=== PATIENT | male | born 1970 | race Caucasian/White ===

== ENCOUNTER 2016-08-24 10:35 | Day surgery (SDC) | payer SELFPAY ==
[~2016-08-24] VITALS: Ht 175.3 cm; Wt 91.2 kg
[~2016-08-24 10:35] MED LIST: CeFAZolin 2 Gm/50 mL D5W IV Premix IV ONE; Lactated Ringer's 1,000 ML IV SCH
[2016-08-24] MEDS ORDERED: MetoCLOpramide 5 mg/mL 2 mL Inj ONE (10:36)
[2016-08-24] MEDS ORDERED: fentaNYL-PF 50 mCg/mL 2 mL Inj ONE (10:36)
[2016-08-24] MEDS ORDERED: Ondansetron 2 mg/mL 2 mL Inj ONE (10:36)
[2016-08-24] MEDS ORDERED: Dexamethasone 4 mg/mL Inj ONE (10:36)
[2016-08-24] MEDS ORDERED: Propofol 10,000 mCg/mL 20 mL Inj ONE (10:36)
[2016-08-24 10:58] VITALS: BP 120/70; PULSE 62; RESP 16; O2SAT 99
[2016-08-24] MEDS ORDERED: CeFAZolin 2 Gm/50 mL D5W Duplex Bag IV ONE (11:34)
[2016-08-24] MEDS ORDERED: Lactated Ringer's 1,000 ML IV SCH (13:27)
[2016-08-24] MEDS ORDERED: Lactated Ringer's 500 ML IV PRN (13:27)
[2016-08-24] MEDS ORDERED: Phenylephrine 10,000 mCg/mL Inj IVPUSH PRN (13:30)
[2016-08-24] MEDS ORDERED: EPHEDrine Sulfate 50 mg/mL Inj IVPUSH PRN (13:30)
[2016-08-24] MEDS ORDERED: HYDROmorphone 1 mg/mL Inj IVPUSH PRN (13:30)
[2016-08-24] MEDS ORDERED: MetoCLOpramide 5 mg/mL 2 mL Inj IVPUSH PRN (13:30)
[2016-08-24] MEDS ORDERED: Ondansetron 2 mg/mL 2 mL Inj IVPUSH PRN (13:30)
[2016-08-24] MEDS ORDERED: Dexamethasone 4 mg/mL Inj IVPUSH PRN (13:30)
[2016-08-24] MEDS ORDERED: fentaNYL-PF 50 mCg/mL 2 mL Inj IVPUSH PRN (13:30)
[2016-08-24] MEDS ORDERED: Lactated Ringer's 1,000 ML IV ONE (15:44)
[2016-08-24] MEDS ORDERED: Bupivacaine-MPF 0.25% 30 mL Inj INFILTRATE ONE (15:50)
[2016-08-24 16:12] VITALS: BP 135/78; PULSE 105; RESP 20; O2SAT 95
[2016-08-24 16:20] VITALS: BP 120/65; PULSE 91; RESP 14; O2SAT 96
--- NOTE | 2016-08-24 16:26 | PCM.SURGPO ---
Immediate Operative Note Date of Surgery: Aug 24, 2016 Pre Operative Diagnosis L testicular mass, bladder tumor Post Operative Diagnosis L testicular mass, bladder tumor Procedure L radical inguinal orchiectomy, cystoscopy, transurethral resection of bladder tumor (1-2cm) Surgeon and Leak Hunter Surgeon: Cruz Aguilera MD Assistants: None Findings Cystoscopy revealed an approx. 1 cm papillary bladder tumor on L posterior wall. Bladder tumor was resected using bipolar loop electrocautery. L radical inguinal orchiectomy was performed. Complications There were no periprocedural complications identified. Surgical Specimen Removed: Yes Specimen sent to Pathology: Yes Surgical Specimen description: L testis, L posterior wall bladder tumor Anesthetic Administered: GA Grafts, Implants: None Output, Estimated Blood Loss: 5 Blood Admin during surgery: No Additional information Patient to be discharged home when stable, to return to see me in 1 week for post-op visit. Cruz Aguilera MD Aug 24, 2016 16:26
[2016-08-24 16:30] VITALS: BP 125/68; PULSE 88; RESP 13; O2SAT 98
--- NOTE | 2016-08-24 16:33 | PCM.DISURG ---
Surgical Discharge Instruction Date of Service Aug 24, 2016 Dates of Hospitalization Date of Hospital Admission Aug 24, 2016 Providers Admitting Physician: Cruz Aguilera MD Primary Care Physician: Nophalima Attending Physician: Cruz Aguilera MD Discharge Diagnosis Discharge Diagnosis L testicular mass, bladder tumor Post Operative diagnosis L testicular mass, bladder tumor Diet Discharge Diet: No restrictions, Other (Drink at least 10-12 8oz. glasses (3 liters) of fluids per day) Activity Discharge Activity-General: No driving while taking narcotic, Other (No strenuous exercise, strenuous activity, moderate or heavy lifting (more than 10 lbs.), and abdominal straining for 6 weeks) Dressing and Incisional Care Dressing Care: Keep dressing clean, dry & intact, Allow Steri Stripes to fall off, Other (Remove dressing covering left inguinal wound (leaving Steri-strips in place) and remove scrotal fluff gauze dressing in 3 days (on Sun. 08/27) and then can shower. Continue to wear scrotal support at all times.) Hygiene: Other (No bath/pool/spa for 4 weeks.) Additional Instructions Discharge Instructions Stay off your feet as much as possible during the next 3 days. Follow Up Plan Follow-up Provider (F9): Cruz Aguilera MD Follow-up appointment: Weeks (1 week for post-op visit) Call your provider for: Fever, Chills, Increasing abdominal pain, Vomiting, Increasing wound pain, Discharge @ incision, pus discharge, Other (Unable to urinate for more than 6 hours, pain uncontrolled by pain medications) Cruz Aguilera MD Aug 24, 2016 16:33
--- NOTE | 2016-08-24 16:34 | PCM.HPANE ---
Patient Data Surgeon Admitting Provider: Attending Provider:Cruz Aguilera MD Primary Care Physician:Yoni Other Provider:Rozina Blanco Anesthesia Reason for Visit Left Testicular Mass, Bladder Tumor Ht/WT & BMI Height (Feet): 5 Height (Inches): 9 Weight (Kilograms): 91.08 Body Mass Index 29.00 Allergies Coded Allergies: No Known Allergies (Unverified , 08/23/16) Past Anesthesia History Anesthesia History: Denies:: Abnormal Airway, Anesthesia Reactions, Difficult Intubation, Fam Anesthesia Reaction, Fam Malignant Hypertherm, Malignant Hyperthermia Diabetes History Hx Diabetes?: No MRSA MRSA: No Medications Hypertension Medication: No Home Meds Incl Beta Kai: No No Active Prescriptions or Reported Meds History HEENT History: Denies:: Abnormal Airway Cataracts Difficult Intubation Dysphagia Glaucoma Hearing Problem Sinus Problem TMJ Cardiovascular History: Denies:: AICD Abdominal Aortic Aneurism Atrial Fibrillation Cardiac Surgery Edema Heart Murmur Hypertension Irregular Heartbeat Pacemaker Peripheral Vascular Hx of Respiratory Problem?: No Respiratory History: Denies:: Asthma COPD Emphysema Oxygen Administration Pneumonia Tuberculosis Use of C-PAP Machine Use of Inhalers / NEBS Hx Neurologic Problems?: No Neurological History: Denies:: CVA Dizziness Headaches Multiple Sclerosis Parkinson's Disease Seizures TIA Hx of GI Problems?: No Gastrointestinal History: Denies:: Cirrhosis Gall Bladder Disease Gastroesphageal Reflux Gastrointestinal Bleeding Heartburn Hepatitis Hiatal Hernia Hx of Problems?: No Genitourinary History: Denies:: Kidney Stones Urinary Tract Infection Male Hx: Positive for:: Testicular Surgery (left mass current admission problem) Denies:: Prostate Problems Skin History: Denies:: History Skin Disorders? Pressure Ulcers Hx Musculoskeletal Problems?: No Musculoskeletal History: Denies:: Back Injury Degenerative Joint Fibromyalgia Joint Replacement Musculoskeletal Trauma Myasthenia Gravis Osteoarthritis Rheumatoid Arthritis Systemic Lupus Hx of Psycho/Social Problems?: No Psycho Social History: Denies:: Anxiety Hx Depression Hx Surgeries?: Yes (vas, brachial cleft cyst removal ) Hx Any Other Health Problems?: Yes Other History: Denies:: Cancer (poss this admission, bladder cancer ) Thyroid Disease History Blood Transfusions: Positive for:: Accept Blood Products? Denies:: Blood Transfusions Hx Diabetes: No Hx Alcohol Use: NoHx Substance Use: NoHave You Smoked inLast 12 mo: No Stop/Bang S-Snoring: Do You Snore Loudly: No T-Tired: feel tired, fatigued: No O-Obsered: Observed not breath: No P-Blood Pressure: treated: No B- Body Mass Index > 35 kg/m2: No A- Age over 50: No N- Neck Large Circumference: No G- Gender Male: Yes AMBER Total Score: 1 Risk Assessment Category Category 1A: Patient has history of documented sleep apnea, and HAS NOT received any narcotic, sedative or anesthesia administration during this stay. Category 1B: Patient has history of documented sleep apnea, and HAS received any narcotic , sedative or anesthesia administration during this stay Category 2: Patient has SUSPECTED Obstructive Sleep Apnea, and HAS received any narcotic , sedative or anesthesia administration during this stay. Category 3: Patient has SUSPECTED Obstructive Sleep Apnea and HAS NOT received narcotic, sedative or anesthesia administration during this stay. Category 4: Outpatient in Procedural Areas with known sleep apnea or who screen positive for High Risk via the STOP/BANG questionnaire. Exam Exam General Appearance: Alert, Oriented X3, Cooperative, No Acute Distress HEENT/AIRWAY: MP 2 Lungs: Clear to Auscultation Heart: Exam Unremarkable Plan Impression Patient chart reviewed, patient interviewed and anesthestic plan with risks, benefits, and alternatives discussed, and informed consent obtained. ASA Physical Status: ASA2 Mod Systemic Disease Anesthetic Plan: GA Bene/Risks/Altern/Consents: Yes HP Complete Prior to Induction: Yes Joseluis Rubio MD Aug 24, 2016 07:55
--- NOTE | 2016-08-24 16:35 | PCM.ANEP1 ---
Post Anesthesia Phase 1 PACU Phase 1 Assessment Date of Service: Aug 24, 2016 Vital Signs Vital Signs Date Time Temp Pulse Resp B/P Pulse Ox O2 Delivery O2 Flow Rate FiO2 08/24/16 16:30 88 13 125/68 98 Room Air 08/24/16 16:20 91 14 120/65 96 Room Air 08/24/16 16:12 36.6 105 20 135/78 95 Room Air 08/24/16 10:58 36.2 62 16 120/70 99 Room Air Anesthetic Administered: GA Level of Alertness: Awake, talking HATCH's with Equal Strength: Yes Pain: No Nausea or Vomiting: No Oxygen Delivery: Room Air Lungs: Clear to Auscultation Dermatome Level: Full Sensation Joseluis Rubio MD Aug 24, 2016 16:35
--- NOTE | 2016-08-24 16:35 | PCM.ANEP2 ---
Post Anesthesia Evaluation ASA/CMS Post Anesthesia VS in Patient's Normal Range?: Yes Resp Stable; Airway Patent?: Yes CV Function & Hydration Stable: Yes Mental Status Recovered?: Yes Pain control Satisfactory?: Yes N/V Control Satisfactory?: Yes Joseluis Rubio MD Aug 24, 2016 16:35
[2016-08-24 16:38] VITALS: BP 128/75; PULSE 87; RESP 16; O2SAT 95
[2016-08-24 16:42] VITALS: BP 132/74; PULSE 92; RESP 16; O2SAT 96
[2016-08-24] MEDS ORDERED: HYDROcodone-APAP 5-325 mg Tablet PO PRN (16:45)
--- NOTE | 2016-08-25 20:22 | OP ---
[address] [address] OPERATIVE REPORT PATIENT: WILLY BRENNAN : 1970 MR#: [id number] ADMIT: 08/24/2016 JOB ID: [id number] DATE OF SURGERY: 08/24/2016 PREOPERATIVE DIAGNOSIS(ES): Left testicular mass, bladder tumor. POSTOPERATIVE DIAGNOSIS(ES): Left testicular mass, bladder tumor. PROCEDURES: Left radical inguinal orchiectomy, cystoscopy, transurethral resection of bladder tumor (1-2 cm). SURGEON: Cruz Aguilera MD SAMPLE MAKER ORIGINAL: None. ANESTHESIA: General. ESTIMATED BLOOD LOSS: 5 mL. SPECIMENS: Left testis, left posterior wall bladder tumor. DRAINS: None. COMPLICATIONS: None. CONDITION: Stable. FINDINGS: Cystoscopy revealed an approximately 1 cm papillary bladder tumor on the left posterior wall. Bladder tumor was resected using bipolar loop electrocautery. Left radical inguinal orchiectomy was performed. INDICATIONS: The patient is a 46-year-old male with microhematuria and left testicular mass, with scrotal ultrasound showing a solid hypoechoic hypervascular left intratesticular mass (highly suspicious for tumor), with office cystoscopy showing a bladder tumor. The patient now presents for left radical inguinal orchiectomy, cystoscopy, and transurethral resection of bladder tumor. DESCRIPTION OF PROCEDURE: The patient was brought to the operating room and placed supine on the operating room table. The patient was given Ancef IV antibiotics. Sequential compression devices were placed. General anesthesia was administered. The patient was brought down into the dorsal lithotomy position. The patient was prepped and draped in standard surgical fashion. A 26-Nepalese continuous flow resectoscope was placed into the distal urethra without difficulty. Cystourethroscopy revealed normal distal urethra, mild bilobar prostatic hypertrophy, mildly trabeculated bladder, an approximately 1 cm papillary bladder tumor on the left posterior wall, no bladder calculi, and bilateral ureteral orifices in normal position. The bladder tumor was resected in its entirety using bipolar loop electrocautery. The bladder tumor was sent to pathology for permanent specimen. The base of the bladder tumor resected area, including normal surrounding bladder mucosa, was fulgurated using the bipolar loop electrocautery. Excellent hemostasis was achieved. No evidence for bladder perforation was seen. Bilateral ureteral orifices were seen to be well preserved and intact at the end of the case. The bladder was drained via the cystoscope. The cystoscope was removed from the patient. Skin was cleaned and dried. The patient was placed in supine position. The patient's scrotum, penis, groin, and abdominal areas were prepped and draped in standard surgical fashion. Of note, a firm left testicular mass was noted on exam. A 5-7 cm oblique incision was made on the left side in the inguinal area along Langerhans skin lines, approximately 2 cm above the pubic tubercle. Incision was made sharply with a #10 blade. Then Camper's and Marisol's fascia were incised using Bovie electrocautery down to the level of the external oblique fascia which was then incised sharply in the direction of its fibers down to the level of the external inguinal ring. The ilioinguinal nerve was identified, dissected free of the spermatic cord, and preserved. The spermatic cord was isolated and then occluded with a Claire tourniquet at the level of the internal inguinal ring. The testis and its investing tunics were delivered into a carefully draped off field, and gubernacular attachments were divided using Bovie electrocautery. Radical orchiectomy was completed by mobilizing the spermatic cord 1-2 cm inside the internal inguinal ring and individually ligating the vas deferens and the spermatic cord vessels between separate clamps. The vas deferens was ligated using a 2-0 silk suture on the patient side and a 2-0 silk suture on the specimen side, and then the vas deferens was divided. The remaining portion of the spermatic cord, including the cord vessels, was ligated using one 0 silk suture ligature on the patient side, another 0 silk suture on the patient side, and one 0 silk suture on the specimen side, and then the remaining portion of the spermatic cord was divided. Of note, one of the sutures used to ligate the spermatic cord on the patient side and one of the sutures used to ligate the vas deferens on the patient side were left long to aid in future identification if needed. Thus the vas deferens and spermatic cord vessels were individually and separately ligated between separate clamps and then were divided. The specimen was sent to pathology for permanent specimen as left testis. The wound and scrotum were thoroughly irrigated using sterile water. Excellent hemostasis was obtained using Bovie electrocautery. The external oblique fascia was closed using a running 2-0 Vicryl suture. Marisol's fascia was closed using a running 3-0 chromic suture. Of note, the ilioinguinal nerve had been seen to be well preserved. 0.25% plain marcaine and 1% plain lidocaine in a 50/50 mixture was administered subcutaneously for local anesthesia. The skin was closed using a running subcuticular 4-0 Monocryl suture. The skin was cleaned and dried. Steri-Strips, sterile dressings, scrotal fluff dressing, and a scrotal support were applied. The patient was transferred to the recovery room in stable condition. The patient tolerated the procedure well. The postop plan is for the patient to be discharged home when stable and for the patient to return to see me in one week for a postoperative visit. KUNAL
--- NOTE | 2016-08-28 16:24 | PATH ---
SURGICAL PATHOLOGY Attending Physician:Cruz Aguilera MD CASE STATUS: Signed Out PATIENT NAME: WILLY BRENNAN PID: [id number] : 1970 DATE COLLECTED:08/24/2016 00:00 SPECIMEN: 1: Bladder, Biopsy 2: Testis, Tumor CLINICAL HISTORY: LEFT TESTICULAR MASS, BLADDER TUMOR 1). LEFT POSTERIOR WALL BLADDER TUMOR 2). LEFT TESTIS FINAL DIAGNOSIS: 1.LEFT POSTERIOR BLADDER WALL TUMOR: LOW-GRADE PAPILLARY UROTHELIAL CARCINOMA, NON-INVASIVE. NO DEFINITE MUSCULARIS PROPRIA IDENTIFIED IN THE BIOPSY. 2.LEFT TESTIS, RADICAL ORCHIECTOMY: SEMINOMA. SPECIMEN LATERALITY: LEFT. TUMOR FOCALITY: UNIFOCAL. TUMOR SIZE: 0.5 X 2.8 X 2.0 CM. MACROSCOPIC EXTENT OF TUMOR: CONFINED TO THE TESTIS. HISTOLOGIC TYPE: SEMINOMA, CLASSIC TYPE. MARGINS: SPERMATIC CORD MARGIN: UNINVOLVED BY TUMOR. OTHER MARGINS: UNINVOLVED BY TUMOR. MICROSCOPIC TUMOR EXTENSION: NOT IDENTIFIED. LYMPH/VASCULAR INVASION: ABSENT. PATHOLOGIC STAGING (PTNM): PRIMARY TUMOR: pT1. REGIONAL LYMPH NODES: pNX. ICD10 codes C67.4 C62.12 NOTE: As part of a routine quality improvement analyst, Dr. Adán Mariano has also reviewed this case and agrees with the diagnoses. GROSS DESCRIPTION: The specimens are received in formalin, labeled with the patient's name, and sublabeled as the following: (1) left posterior wall bladder; (2) left testis. (1) The specimen consists of a piece of andre glistening semitranslucent rubbery papillary semi-friable tissue (0.9 x 0.8 x 0.7 cm). Ink code: black-resection margin. Section code: (1A) tissue, bisected. Specimen entirely submitted. (2) The specimen weighs 56.6 g and consists of a testis (3.8 x 3.1 x 2.8 cm), epididymis (3.9 x 1.5 x 1.0 cm), attached spermatic cord (length-8.5 cm, diameter-1.5 x 0.8 cm), and tunica vaginalis. A rim of andre spongy parenchyma encircles a andre white rubbery lobulated homogenous mass (3.5 x 2.8 x 2.0 cm). The mass abuts the tunica albuginea but does not appear to extend through. The mass is less than 0.1 cm from the epididymis and 10.3 cm from the resection margin. The epididymis is andre and spongy and focally bright white and firm. The tunica albuginea and tunica vaginalis are unremarkable. No other nodules, masses or lesions are identified. Ink code: black-resection margin. Section code: (2A) resection margin; (2B) spermatic cord, multiply sectioned, commercial sales representative; (2C-2G) testis with mass, epididymis, tunica albuginea, tunica vaginalis, commercial sales representative. 08/25/16 JM MICRO DESCRIPTION: A.See diagnosis. B.Sections of the testicular mass show a neoplasm characterized by broad fibrous bands between sheets of cells with large vesicular nuclei, prominent nucleoli, and high nuclear/cytoplasmic ratios. There is an accompanying lymphoid infiltrate. No anaplastic features noted. ICD-9 CODES: CPT CODES: 1: 22099 2: 17980 Electronically Signed Out Analilia Thurston MD [facility] [address], [place] [address] Technical component performed at [facility], [facility] [address], [address]
== END 2016-08-24 23:59 | disposition home or self-care (01) ==
LOC: SAS 10:35
PROVIDERS: ATTEND Urology
DX: C62.92 Malignant neoplasm of left testis, unspecified whether descended or undescended (principal); C67.4 Malignant neoplasm of posterior wall of bladder
CPT/HCPCS: 52234; 54530; J0690; J1100; J2250; J2405; J2765; J3010; J7120